=== PATIENT | female | born 2000 | race Caucasian/White ===

== ENCOUNTER 2024-01-14 03:23 | Emergency (ER) | payer OTHER, SELFPAY ==
[2024-01-14 03:26] VITALS: BP 142/96
--- NOTE | 2024-01-14 03:36 | ED.GENMED ---
History of Present Illness
General
Chief Complaint: Head Injury
Time Seen by Provider: 01/14/24 03:36
Travel History
Have you had any contact with someone who has COVID-19?: No
Do you have any symptoms of coronavirus? Fever > 100 degrees, chills, cough, shortness of breath, sore throat, loss of taste or smell, muscle aches, or headache?: No
History of Present Illness
History of Present Illness:
HPI: Patient presents with laceration of the forehead. She did have alcohol earlier but does not appear clinically intoxicated. She has not vomited. She has no significant head pain. Due to her concerns for cosmetic appearance, she is strongly
requesting plastics for closure.
EXAM:
GENERAL: Well appearing in no distress
CERVICAL SPINE: No midline c-spine tenderness with excellent AROM
HEAD: There is a 5 cm laceration to the upper forehead that extends just proximal to the hairline
CHEST: No chest wall tenderness, normal heart sounds
LUNGS: Equal lung sounds, no respiratory distress
ABDOMEN: No abdominal tenderness, no peritoneal signs
EXTREMITIES: Normal active range of motion, no tenderness
NEURO: Excellent strength all extremities, appropriate mental status, normal speech/language
TIME OF INITIAL ENCOUNTER: 3:40 AM
NUMBER AND COMPLEXITY OF PROBLEMS ADDRESSED AT THE ENCOUNTER
� Chronic conditions affecting care: No significant chronic medical issues
� Acute Exacerbation and/or Progression of Chronic Illness: This is an acute problem
� Differential Diagnosis includes: Facial laceration
AMOUNT AND/OR COMPLEXITY OF DATA TO BE REVIEWED AND ANALYZED
� I performed an independent evaluation of and my interpretation is:
EKG:
CT:
X-rays:
Laboratory Studies:
Other:
� Review of other/old records: Left medial meniscus tear operatively managed in 2018
� Clinical information was obtained by an independent historian: I spoke to family at bedside
� Prescriptions/Medications Considered but not given:
� Further testing considered but not performed:
RISK OF COMPLICATIONS AND/OR MORBIDITY OR MORTALITY OF PATIENT MANAGEMENT
� Social determinants of health affecting care: Lives at home
� Discussion with other providers: Based on patient request, I did notify Dr. Sanchez at 3:45 AM�DrRowena Sanchez will be coming in at around 4:30 AM.
� Escalation of care including admission/observation vs risk of discharge considered: Dr. Sanchez sutured the laceration. She is to follow-up with him in the office.
Phy Exam
Physical Exam
Physical Exam:
See HPI
Course
Vital Signs
Initial and Last Documented VS:
Initial Vital Signs
Temp Pulse Resp BP Pulse Ox
98.1 F 118 14 142/96 99
01/14/24 03:26 01/14/24 03:26 01/14/24 03:26 01/14/24 03:26 01/14/24 03:26
Last Documented Vital Signs
Temp Pulse Resp BP Pulse Ox
98.1 F 118 14 142/96 99
01/14/24 03:26 01/14/24 03:26 01/14/24 03:26 01/14/24 03:26 01/14/24 03:26
*Critical Care Note
Total Time (30-74mins, 75-104mins- exclusive of procedures): Not Applicable
ED Attending Note
-
Portions of this chart may have been created with voice recognition software.� Occasional wrong word or��sound alike� substitutions may have occurred due to the inherent limitations of voice recognition software.
Discharge Plan
Departure
Patient Disposition: Home (Routine Discharge)
Date of Disposition: 01/14/24
Time of Disposition: 05:29
Patient with high blood pressure during this ER visit?: Yes
Discharge Problem:
Facial laceration
Instructions: Laceration Repair With Stitches (DC)
Prescriptions:
No Action
spironolactone 25 mg Tablet
25 mg PO BID
Referrals:
Vinay Sanchez, DO [Active] - Follow up in 5-7 days
UNKNOWN - PT DOES,NOT KNOW [Family Provider] -
Activity Restrictions/Additional Instructions:
Follow-up in [address] Sanchez.
Interventions
Interventions:
*Risk Screen - Suicide Last Done: 01/14/24 03:26
*General Assessment Last Done: 01/14/24 03:26
*Neglect/Abuse Screening Last Done: 01/14/24 03:26
ED- Fall Risk Assessment Last Done: 01/14/24 03:45
ED- Neurological Assessment Last Done: 01/14/24 03:45
ED-Skin Assessment Last Done: 01/14/24 03:45
Discharge Date and Time
Print Language: POLISH
[2024-01-14 03:54] VITALS: BMI 28.3
== END 2024-01-14 05:57 | disposition home or self-care (01) ==
LOC: EMR 03:23
PROVIDERS: EMERGENCY PHYSICIAN Emergency Medicine; OTHER PHYSICIAN Otolaryngology
DX: S09.12XA Laceration of muscle and tendon of head, initial encounter (principal); W22.09XA Striking against other stationary object, initial encounter; R03.0 Elevated blood-pressure reading, without diagnosis of hypertension; F10.90 Alcohol use, unspecified, uncomplicated
CPT/HCPCS: 13132; 99283